=== PATIENT | female | born 1990 | race American Indian/Alaskan Native ===

== ENCOUNTER 2018-02-26 07:40 | Emergency (ER) | payer MEDICAID ==
[2018-02-26 07:51] VITALS: BP 158/83
[2018-02-26] MEDS ORDERED: DELTASONE PO ONE (10:02)
[2018-02-26] MEDS ORDERED: TORADOL IM ONE (10:03)
--- NOTE | 2018-02-26 10:09 | Emergency Department Report ---
ED General Adult HPI - General Chief complaint: Back Pain/Injury Stated complaint: BACK PAIN Time Seen by Provider: 02/26/18 09:58 Source: patient Mode of arrival: Ambulatory Limitations: No Limitations - History of Present Illness Initial comments: Patient complains of lower back pain that has been present for the last 5 days that radiates into her left leg and down into her toes. Patient does have a history of back injuries. Denies any issues with bowel or bladder. Also denies any weakness or numbness. No recent injury -: Gradual Location: back Radiation: other (leg) Severity scale (0 -10): 6 Quality: sharp Consistency: constant Improves with: rest Worsens with: movement Associated Symptoms: denies other symptoms Treatments Prior to Arrival: NSAID - Related Data Previous Rx's Medication Instructions Recorded Last Taken Type Hydrocortisone 2.5% [Hytone 2.5% 1 applicatio TP QDAY #1 tube 11/17/14 Unknown Rx CREAM] Cyclobenzaprine [Flexeril 10mg] 10 mg PO Q8H PRN #21 tablet 12/13/14 Unknown Rx HYDROcodone/APAP 5-325 [[place] 1 each PO Q6HR PRN #16 tablet 12/13/14 Unknown Rx 5-325 mg TAB] Meloxicam 15 mg PO QDAY #30 tablet 01/08/15 Unknown Rx traMADol [Ultram] 50 mg PO Q6HR PRN #20 tablet 01/08/15 Unknown Rx Acetaminophen/Codeine [Tylenol #3] 1 tab PO Q6H PRN #15 tab 01/12/15 Unknown Rx Acetaminophen/Codeine [Tylenol 1 tab PO Q6H PRN #20 tab 02/26/18 Unknown Rx /Codeine # 3 tab] Ibuprofen [Motrin] 800 mg PO Q8HR PRN #30 tablet 02/26/18 Unknown Rx Prednisone [predniSONE 10 mg 10 mg PO .TAPER #1 tab.ds.pk 02/26/18 Unknown Rx (6-Day Pack, 21 Tabs)] Allergies Allergy/AdvReac Type Severity Reaction Status Date / Time tramadol Allergy Rash Verified 02/26/18 07:48 latex AdvReac "YEAST" Verified 01/12/15 17:24 ED Review of Systems ROS: Stated complaint: BACK PAIN Other details as noted in HPI Constitutional: denies: chills, fever Eyes: denies: eye pain, eye discharge, vision change ENT: denies: ear pain, throat pain Respiratory: denies: cough, shortness of breath, wheezing Cardiovascular: denies: chest pain, palpitations Endocrine: no symptoms reported Gastrointestinal: denies: abdominal pain, nausea, diarrhea Genitourinary: denies: urgency, dysuria, discharge Musculoskeletal: back pain. denies: joint swelling, arthralgia Skin: denies: rash, lesions Neurological: denies: headache, weakness, paresthesias Psychiatric: denies: anxiety, depression Hematological/Lymphatic: denies: easy bleeding, easy bruising ED Past Medical Hx - Past Medical History Previous Medical History?: Yes Additional medical history: BACK PAIN - Surgical History Past Surgical History?: Yes Additional Surgical History: x 1 - Social History Smoking Status: Never Smoker Substance Use Type: Prescribed - Medications Home Medications: Home Medications Medication Instructions Recorded Confirmed Last Taken Type Hydrocortisone 2.5% [Hytone 2.5% 1 applicatio TP QDAY #1 tube 11/17/14 Unknown Rx CREAM] Cyclobenzaprine [Flexeril 10mg] 10 mg PO Q8H PRN #21 tablet 12/13/14 Unknown Rx HYDROcodone/APAP 5-325 [[place] 1 each PO Q6HR PRN #16 tablet 12/13/14 Unknown Rx 5-325 mg TAB] Meloxicam 15 mg PO QDAY #30 tablet 01/08/15 Unknown Rx traMADol [Ultram] 50 mg PO Q6HR PRN #20 tablet 01/08/15 Unknown Rx Acetaminophen/Codeine [Tylenol #3] 1 tab PO Q6H PRN #15 tab 01/12/15 Unknown Rx Acetaminophen/Codeine [Tylenol 1 tab PO Q6H PRN #20 tab 02/26/18 Unknown Rx /Codeine # 3 tab] Ibuprofen [Motrin] 800 mg PO Q8HR PRN #30 tablet 02/26/18 Unknown Rx Prednisone [predniSONE 10 mg 10 mg PO .TAPER #1 tab.ds.pk 02/26/18 Unknown Rx (6-Day Pack, 21 Tabs)] ED Physical Exam - General Limitations: No Limitations General appearance: alert, in no apparent distress - Head Head exam: Present: atraumatic, normocephalic - Eye Eye exam: Present: normal appearance - ENT ENT exam: Present: mucous membranes moist - Neck Neck exam: Present: normal inspection - Respiratory Respiratory exam: Present: normal lung sounds bilaterally. Absent: respiratory distress - Cardiovascular Cardiovascular Exam: Present: regular rate, normal rhythm. Absent: systolic murmur, diastolic murmur, rubs, gallop - GI/Abdominal GI/Abdominal exam: Present: soft, normal bowel sounds - Extremities Exam Extremities exam: Present: normal inspection - Back Exam Back exam: Present: other (patient has tenderness to palpation at the sciatic nerve outlet on the left side. Range of motion is limited secondary to pain. There is tenderness palpation of the paralumbar region) - Neurological Exam Neurological exam: Present: alert, oriented X3 - Psychiatric Psychiatric exam: Present: normal affect, normal mood - Skin Skin exam: Present: warm, dry, intact, normal color. Absent: rash ED Course Vital Signs 02/26/18 07:48 Temperature 98.3 F Pulse Rate 84 Respiratory 18 Rate Blood Pressure 158/83 O2 Sat by Pulse 98 Oximetry ED Medical Decision Making - Medical Decision Making Discussed diagnosis and plan of care with patient Critical care attestation.: If time is entered above; I have spent that time in minutes in the direct care of this critically ill patient, excluding procedure time. ED Disposition Clinical Impression: Sciatica Disposition: DC-01 TO HOME OR SELFCARE Is pt being admited?: No Does the pt Need Aspirin: No Condition: Stable Instructions: Sciatica (ED) Additional Instructions: Return if worse Prescriptions: Acetaminophen/Codeine [Tylenol /Codeine # 3 tab] 1 tab PO Q6H PRN #20 tab PRN Reason: Pain Ibuprofen [Motrin] 800 mg PO Q8HR PRN #30 tablet PRN Reason: Pain Prednisone [predniSONE 10 mg (6-Day Pack, 21 Tabs)] 10 mg PO .TAPER #1 tab.ds.pk Referrals: PRIMARY CAREMD [Primary Care Provider] - 3-5 Days EWA PRIETO MD [Staff Physician] - 3-5 Days Time of Disposition: 10:07
== END 2018-02-26 10:17 | disposition home or self-care (01) ==
LOC: ED 07:40
DX: M54.32 Sciatica, left side (principal); Z91.040 Latex allergy status
CPT/HCPCS: 96372; 99282; J1885; J7512

== ENCOUNTER 2019-12-16 17:59 | Emergency (ER) | payer SELFPAY ==
[2019-12-16 21:18] VITALS: BP 139/94
[2019-12-16] MEDS ORDERED: FAMOTIDINE 20 MG TAB PO ONE (23:45)
[2019-12-16] MEDS ORDERED: dexAMETHasone 20 MG/5 ML VIAL IM ONE (23:45)
[2019-12-17] MEDS: diphenhydrAMINE 25 MG CAP PO ONE (00:01)
--- NOTE | 2019-12-17 00:32 | Emergency Department Report ---
ED Rash HPI - HPI Chief Complaint: Skin Rash Stated Complaint: RASH Time Seen by Provider: 12/16/19 23:44 Duration: 2 Days Location: Neck, Chest, Back, Abdomen Rash Symptoms: Yes Itching, No Facial Swelling, No Tongue/Oral Swelling, No Breathing Difficulties, No Choking Sensation, No Wheezing/Dyspnea, No Peeling, No Blistering, No Fever, No Lightheaded, No Malaise, No Myalgias Severity: moderate Other History: Patient is a 29-year-old -[place] female who presents for generalized rash to chest neck back and trunk. Patient states sudden eruption 2 days ago , unknown trigger. There is no shortness of breath no wheezing no stridor. Lesions are papular erythemic no drainage no fever symptoms relieved by its scratch cycle, symptoms exacerbated by it scratch cycle. pt with nad ED Review of Systems ROS: Stated complaint: RASH Other details as noted in HPI Constitutional: denies: chills, fever Eyes: denies: eye pain, eye discharge, vision change ENT: denies: ear pain, throat pain Respiratory: denies: cough, shortness of breath, wheezing Cardiovascular: denies: chest pain, palpitations Endocrine: no symptoms reported Gastrointestinal: denies: abdominal pain, nausea, diarrhea Genitourinary: denies: urgency, dysuria, discharge Musculoskeletal: denies: back pain, joint swelling, arthralgia Skin: rash, pruritus. denies: lesions, change in color, change in hair/nails Neurological: denies: headache, weakness, paresthesias Psychiatric: denies: anxiety, depression Hematological/Lymphatic: as per HPI ED Past Medical Hx - Past Medical History Previous Medical History?: No Additional medical history: BACK PAIN - Surgical History Past Surgical History?: Yes Additional Surgical History: x 1 - Social History Smoking Status: Never Smoker Substance Use Type: Prescribed - Medications Home Medications: Home Medications Medication Instructions Recorded Confirmed Last Taken Type Hydrocortisone 2.5% [Hytone 2.5% 1 applicatio TP QDAY #1 tube 11/17/14 Unknown Rx CREAM] Cyclobenzaprine [Flexeril 10mg] 10 mg PO Q8H PRN #21 tablet 12/13/14 Unknown Rx HYDROcodone/APAP 5-325 [[place] 1 each PO Q6HR PRN #16 tablet 12/13/14 Unknown Rx 5-325 mg TAB] Meloxicam 15 mg PO QDAY #30 tablet 01/08/15 Unknown Rx traMADoL [Ultram] 50 mg PO Q6HR PRN #20 tablet 01/08/15 Unknown Rx Acetaminophen/Codeine [Tylenol #3] 1 tab PO Q6H PRN #15 tab 01/12/15 Unknown Rx Acetaminophen/Codeine [Tylenol 1 tab PO Q6H PRN #20 tab 02/26/18 Unknown Rx /Codeine # 3 tab] Ibuprofen [Motrin] 800 mg PO Q8HR PRN #30 tablet 02/26/18 Unknown Rx Prednisone [predniSONE 10 mg 10 mg PO .TAPER #1 tab.ds.pk 02/26/18 Unknown Rx (6-Day Pack, 21 Tabs)] Famotidine [Pepcid] 20 mg PO BID 7 Days #14 tablet 12/17/19 Unknown Rx Prednisone [predniSONE 10 mg 10 mg PO .TAPER #1 tab.ds.pk 12/17/19 Unknown Rx (6-Day Pack, 21 Tabs)] Triamcinolone 0.1% [Kenalog 0.1% 1 applic TP TID 14 Days #1 tube 12/17/19 Unknown Rx CREAM] diphenhydrAMINE [Benadryl CAP] 25 mg PO Q6HR PRN #30 capsule 12/17/19 Unknown Rx Rash Exam - Exam General: Vital signs noted. No distress. Alert and acting appropriately. HEENT: No Periorbital Edema, No Conjuctival Injection, No Chemosis, No Perioral Edema, No Tongue Edema, No Uvular Edema, No Compromised Airway, No Drooling Lungs: Yes Good Air Exchange (Normal Breath Sounds), No Wheezes, No Ronchi, No Stridor, No Cough, No Labored Respirations, No Retractions, No Use of Accessory Muscles, No Other Abnormal Lung Sounds Heart: Yes Regular, No Murmur Skin: Yes Urticarial Rash, Yes Maculopapular Rash, Yes Erythema, No Morbilliform rash, No Bulla(e), No Excoriations, No Weeping, No Tenderness, No Edema, No Encrustations Other: Positive: Abdomen Normal, Neurologic Normal, Musculoskeletal Normal ED Course Vital Signs 12/16/19 18:10 Temperature 98.9 F Pulse Rate 97 H Respiratory 18 Rate Blood Pressure 139/94 O2 Sat by Pulse 98 Oximetry ED Medical Decision Making - Medical Decision Making this is a contact dermatitis. symptoms improved with medications given in ed. Plan dc to home with rx for pepcid, benadryl , prednisone, and triamincolone oint, pt will follow up with pcp in 2-3 days. pt will return to ed if symptoms worsens. pt is currently a/ox 3 , resp even and nonlobored, pt nad at this time. Critical care attestation.: If time is entered above; I have spent that time in minutes in the direct care of this critically ill patient, excluding procedure time. ED Disposition Clinical Impression: Allergic dermatitis Disposition: DC-01 TO HOME OR SELFCARE Is pt being admited?: No Does the pt Need Aspirin: No Condition: Stable Instructions: Contact Dermatitis (ED) Prescriptions: diphenhydrAMINE [Benadryl CAP] 25 mg PO Q6HR PRN #30 capsule PRN Reason: itching allergies Triamcinolone 0.1% [Kenalog 0.1% CREAM] 1 applic TP TID 14 Days #1 tube Famotidine [Pepcid] 20 mg PO BID 7 Days #14 tablet Prednisone [predniSONE 10 mg (6-Day Pack, 21 Tabs)] 10 mg PO .TAPER #1 tab.ds.pk Referrals: EWA PRIETO MD [Staff Physician] - 3-5 Days Forms: Work/School Release Form(ED) Time of Disposition: 00:43
== END 2019-12-17 00:50 | disposition home or self-care (01) ==
LOC: ED 17:59
DX: L23.9 Allergic contact dermatitis, unspecified cause (principal); Z98.890 Other specified postprocedural states; Z91.040 Latex allergy status; Z88.6 Allergy status to analgesic agent; Z79.899 Other long term (current) drug therapy
CPT/HCPCS: 96372; 99282; J1100

== ENCOUNTER 2021-01-01 10:29 | Emergency (ER) | payer SELFPAY ==
[2021-01-01 11:16] LABS: Basophils % (Auto) 0.4 % (0.0-1.8); Eosinophils # (Auto) 0.1 K/mm3 (0.0-0.4); Eosinophils % (Auto) 0.8 % (0.0-4.3); Hematocrit 37.2 % (30.3-42.9); Hemoglobin 12.8 gm/dl (10.1-14.3); Lymphocytes # (Auto) 1.9 K/mm3 (1.2-5.4); Mean Corpuscular HGB Conc 35 % (30-34); Mean Corpuscular Volume 86 fl (79-97); Monocytes # (Auto) 0.5 K/mm3 (0.0-0.8); Platelet Count 308 K/mm3 (140-440); Red Blood Count 4.31 M/mm3 (3.65-5.03); Red Cell Distribution Width 13.4 % (13.2-15.2)
[2021-01-01 11:22] LABS: Bilirubin,Urine NEG (Negative); Blood,Urine LG (Negative); Color,Urine Yellow (Yellow); Mucus,Urine FEW /HPF; Urobilinogen,Urine < 2.0 mg/dL (<2.0)
--- NOTE | 2021-01-01 11:31 | Emergency Department Report ---
ED General Adult HPI - General Chief complaint: Vaginal Bleeding Stated complaint: 3 WKS BLEEDING Time Seen by Provider: 01/01/21 10:47 Source: patient Mode of arrival: Ambulatory Limitations: No Limitations - History of Present Illness Initial comments: Patient is a 30-year-old female presents emergency room complaints of vaginal spotting that began last night. She states that she has some mild lower abdominal cramping. She states that her last menstrual cycle was November 15, 2020. She states that she took 4 at home test [id number] and they were positive. She has not yet seen anyone for this . She denies any fever, nausea, vomiting, diarrhea, chills, back pain, urinary symptoms, heavy bleeding, passing clots. No past medical history. Allergy to tramadol and latex. /P: 2/A: 1 - Related Data Previous Rx's Medication Instructions Recorded Last Taken Type Hydrocortisone 2.5% [Hytone 2.5% 1 applicatio TP QDAY #1 tube 11/17/14 Unknown Rx CREAM] Cyclobenzaprine [Flexeril 10mg] 10 mg PO Q8H PRN #21 tablet 12/13/14 Unknown Rx HYDROcodone/APAP 5-325 [[place] 1 each PO Q6HR PRN #16 tablet 12/13/14 Unknown Rx 5-325 mg TAB] Meloxicam 15 mg PO QDAY #30 tablet 01/08/15 Unknown Rx traMADoL [Ultram] 50 mg PO Q6HR PRN #20 tablet 01/08/15 Unknown Rx Acetaminophen/Codeine [Tylenol #3] 1 tab PO Q6H PRN #15 tab 01/12/15 Unknown Rx Acetaminophen/Codeine [Tylenol 1 tab PO Q6H PRN #20 tab 02/26/18 Unknown Rx /Codeine # 3 tab] Ibuprofen [Motrin] 800 mg PO Q8HR PRN #30 tablet 02/26/18 Unknown Rx Prednisone [predniSONE 10 mg 10 mg PO .TAPER #1 tab.ds.pk 02/26/18 Unknown Rx (6-Day Pack, 21 Tabs)] Famotidine [Pepcid] 20 mg PO BID 7 Days #14 tablet 12/17/19 Unknown Rx Prednisone [predniSONE 10 mg 10 mg PO .TAPER #1 tab.ds.pk 12/17/19 Unknown Rx (6-Day Pack, 21 Tabs)] Triamcinolone 0.1% [Kenalog 0.1% 1 applic TP TID 14 Days #1 tube 12/17/19 Unknown Rx CREAM] diphenhydrAMINE [Benadryl CAP] 25 mg PO Q6HR PRN #30 capsule 12/17/19 Unknown Rx Allergies Allergy/AdvReac Type Severity Reaction Status Date / Time tramadol Allergy Rash Verified 01/01/21 10:32 latex AdvReac "YEAST" Verified 01/01/21 10:32 ED Review of Systems ROS: Stated complaint: 3 WKS BLEEDING Other details as noted in HPI Comment: All other systems reviewed and negative ED Past Medical Hx - Past Medical History Previous Medical History?: Yes Additional medical history: BACK PAIN - Surgical History Additional Surgical History: x 1 - Social History Smoking Status: Never Smoker Substance Use Type: None - Medications Home Medications: Home Medications Medication Instructions Recorded Confirmed Last Taken Type Hydrocortisone 2.5% [Hytone 2.5% 1 applicatio TP QDAY #1 tube 11/17/14 Unknown Rx CREAM] Cyclobenzaprine [Flexeril 10mg] 10 mg PO Q8H PRN #21 tablet 12/13/14 Unknown Rx HYDROcodone/APAP 5-325 [[place] 1 each PO Q6HR PRN #16 tablet 12/13/14 Unknown Rx 5-325 mg TAB] Meloxicam 15 mg PO QDAY #30 tablet 01/08/15 Unknown Rx traMADoL [Ultram] 50 mg PO Q6HR PRN #20 tablet 01/08/15 Unknown Rx Acetaminophen/Codeine [Tylenol #3] 1 tab PO Q6H PRN #15 tab 01/12/15 Unknown Rx Acetaminophen/Codeine [Tylenol 1 tab PO Q6H PRN #20 tab 02/26/18 Unknown Rx /Codeine # 3 tab] Ibuprofen [Motrin] 800 mg PO Q8HR PRN #30 tablet 02/26/18 Unknown Rx Prednisone [predniSONE 10 mg 10 mg PO .TAPER #1 tab.ds.pk 02/26/18 Unknown Rx (6-Day Pack, 21 Tabs)] Famotidine [Pepcid] 20 mg PO BID 7 Days #14 tablet 12/17/19 Unknown Rx Prednisone [predniSONE 10 mg 10 mg PO .TAPER #1 tab.ds.pk 12/17/19 Unknown Rx (6-Day Pack, 21 Tabs)] Triamcinolone 0.1% [Kenalog 0.1% 1 applic TP TID 14 Days #1 tube 12/17/19 Unknown Rx CREAM] diphenhydrAMINE [Benadryl CAP] 25 mg PO Q6HR PRN #30 capsule 12/17/19 Unknown Rx ED Physical Exam - General Limitations: No Limitations General appearance: alert, in no apparent distress - Head Head exam: Present: atraumatic, normocephalic - Eye Eye exam: Present: normal appearance - ENT ENT exam: Present: mucous membranes moist - Respiratory Respiratory exam: Present: normal lung sounds bilaterally. Absent: respiratory distress, wheezes, rales, rhonchi, stridor, chest wall tenderness, accessory muscle use, decreased breath sounds, prolonged expiratory - Cardiovascular Cardiovascular Exam: Present: regular rate, normal rhythm, normal heart sounds. Absent: systolic murmur, diastolic murmur, rubs, gallop - GI/Abdominal GI/Abdominal exam: Present: soft, normal bowel sounds. Absent: distended, tenderness, guarding, rebound, rigid - Neurological Exam Neurological exam: Present: alert, oriented X3 - Psychiatric Psychiatric exam: Present: normal affect, normal mood - Skin Skin exam: Present: warm, dry, intact ED Course Vital Signs 01/01/21 01/01/21 10:33 14:39 Temperature 98.7 F Pulse Rate 91 H 93 H Respiratory 20 18 Rate Blood Pressure 142/88 Blood Pressure 124/91 [Left] O2 Sat by Pulse 100 100 Oximetry ED Medical Decision Making - Lab Data Result diagrams: 01/01/21 10:58 01/01/21 10:58 Lab Results 01/01/21 01/01/21 01/01/21 Range/Units 10:46 10:56 10:58 WBC 7.1 (4.5-11.0) K/mm3 RBC 4.31 (3.65-5.03) M/mm3 Hgb 12.8 (10.1-14.3) gm/dl Hct 37.2 (30.3-42.9) % MCV 86 (79-97) fl MCH 30 (28-32) pg MCHC 35 H (30-34) % RDW 13.4 (13.2-15.2) % Plt Count 308 (140-440) K/mm3 Lymph % (Auto) 26.0 (13.4-35.0) % [place] % (Auto) 7.0 (0.0-7.3) % Eos % (Auto) 0.8 (0.0-4.3) % Baso % (Auto) 0.4 (0.0-1.8) % Lymph # (Auto) 1.9 (1.2-5.4) K/mm3 [place] # (Auto) 0.5 (0.0-0.8) K/mm3 Eos # (Auto) 0.1 (0.0-0.4) K/mm3 Baso # (Auto) 0.0 (0.0-0.1) K/mm3 Seg Neutrophils % 65.8 (40.0-70.0) % Seg Neutrophils # 4.7 (1.8-7.7) K/mm3 Sodium (137-145) mmol/L Potassium (3.6-5.0) mmol/L Chloride (98-107) mmol/L Carbon Dioxide (22-30) mmol/L Anion Gap mmol/L BUN (7-17) mg/dL Creatinine (0.6-1.2) mg/dL Estimated GFR ml/min BUN/Creatinine Ratio % Glucose (65-100) mg/dL Calcium (8.4-10.2) mg/dL Total Bilirubin (0.1-1.2) mg/dL AST (5-40) units/L ALT (7-56) units/L Alkaline Phosphatase (35-129) units/L Total Protein (6.3-8.2) g/dL Albumin (3.9-5) g/dL Albumin/Globulin Ratio % HCG, Quant (0-4) mIU/mL Urine Color Yellow (Yellow) Urine Turbidity Slightly-cloudy (Clear) Urine pH 6.0 (5.0-7.0) Ur Specific [place] 1.015 (1.003-1.030) Urine Protein 30 mg/dl (Negative) mg/dL Urine Glucose (UA) 50 (Negative) mg/dL Urine Ketones Neg (Negative) mg/dL Urine Blood Lg (Negative) Urine Nitrite Neg (Negative) Urine Bilirubin Neg (Negative) Urine Urobilinogen < 2.0 (<2.0) mg/dL Ur Leukocyte Esterase Sm (Negative) Urine WBC (Auto) 31.0 H (0.0-6.0) /HPF Urine RBC (Auto) 78.0 (0.0-6.0) /HPF U Epithel Cells (Auto) 2.0 (0-13.0) /HPF Urine Mucus Few /HPF Blood Type B NEGATIVE 01/01/21 01/01/21 Range/Units 10:58 10:58 WBC (4.5-11.0) K/mm3 RBC (3.65-5.03) M/mm3 Hgb (10.1-14.3) gm/dl Hct (30.3-42.9) % MCV (79-97) fl MCH (28-32) pg MCHC (30-34) % RDW (13.2-15.2) % Plt Count (140-440) K/mm3 Lymph % (Auto) (13.4-35.0) % [place] % (Auto) (0.0-7.3) % Eos % (Auto) (0.0-4.3) % Baso % (Auto) (0.0-1.8) % Lymph # (Auto) (1.2-5.4) K/mm3 [place] # (Auto) (0.0-0.8) K/mm3 Eos # (Auto) (0.0-0.4) K/mm3 Baso # (Auto) (0.0-0.1) K/mm3 Seg Neutrophils % (40.0-70.0) % Seg Neutrophils # (1.8-7.7) K/mm3 Sodium 139 (137-145) mmol/L Potassium 3.2 L (3.6-5.0) mmol/L Chloride 103.1 (98-107) mmol/L Carbon Dioxide 26 (22-30) mmol/L Anion Gap 13 mmol/L BUN 10 (7-17) mg/dL Creatinine 0.7 (0.6-1.2) mg/dL Estimated GFR > 60 ml/min BUN/Creatinine Ratio 14 % Glucose 81 (65-100) mg/dL Calcium 8.9 (8.4-10.2) mg/dL Total Bilirubin 0.40 (0.1-1.2) mg/dL AST 14 (5-40) units/L ALT 10 (7-56) units/L Alkaline Phosphatase 84 (35-129) units/L Total Protein 7.2 (6.3-8.2) g/dL Albumin 4.2 (3.9-5) g/dL Albumin/Globulin Ratio 1.4 % HCG, Quant 1421 H (0-4) mIU/mL Urine Color (Yellow) Urine Turbidity (Clear) Urine pH (5.0-7.0) Ur Specific [place] (1.003-1.030) Urine Protein (Negative) mg/dL Urine Glucose (UA) (Negative) mg/dL Urine Ketones (Negative) mg/dL Urine Blood (Negative) Urine Nitrite (Negative) Urine Bilirubin (Negative) Urine Urobilinogen (<2.0) mg/dL Ur Leukocyte Esterase (Negative) Urine WBC (Auto) (0.0-6.0) /HPF Urine RBC (Auto) (0.0-6.0) /HPF U Epithel Cells (Auto) (0-13.0) /HPF Urine Mucus /HPF Blood Type - Radiology Data Radiology results: report reviewed Ordering Physician: SANJUANITA FRASER Date of Service: 01/01/21 Procedure(s): US OB <= 14 weeks fetus Accession Number(s): [id number] cc: SANJUANITA FRASER ULTRASOUND OBSTETRIC INDICATION / CLINICAL INFORMATION: , cramping, spotting. TECHNIQUE: Transabdominal-transvaginal. COMPARISON: None available. FINDINGS: Heterogeneous densities present in the endometrial canal measuring 0.85 cm in length. Numerous small nabothian cyst are present cervical region ADNEXA: No significant abnormality. FREE FLUID: None. ADDITIONAL FINDINGS: None. IMPRESSION: 1. Questionable very small gestational sac recommend clinical correlation Signer Name: Cecil Schmid MD Signed: 01/01/2021 1:40 PM Workstation Name: [id number] Transcribed By: WG Dictated By: Cecil Schmid MD Electronically Authenticated By: Cecil Schmid MD Signed Date/Time: 01/01/21 1340 DD/ 1338 TD/TT: Print Cancel - Medical Decision Making Patient is a 30-year-old female presents emergency room complaints of vaginal spotting that began last night. She states that she has some mild lower abdominal cramping. She states that her last menstrual cycle was November 15, 2020. She states that she took 4 at home test [id number] and t hey were positive. She has not yet seen anyone for this . She denies any fever, nausea, vomiting, diarrhea, chills, back pain, urinary symptoms, heavy bleeding, passing clots. No past medical history. Allergy to tramadol and latex. /P: 2/A: 1. Vitals are stable. On exam no abdominal tenderness on exam, no guarding, no rebound, no rigidity, normal sounds, no peritoneal signs. Labs with mild hypokalemia, repleted with potassium. hCG quant is 1421. UA shows evidence of blood, there is a small amount of white blood cells and small leukocyte esterase, patient is not having any urinary symptoms, will await urine culture results, I do not believe this is a UTI, likely secondary to contamination. OB ultrasound: 1. Questionable very small gestational sac recommend clinical correlation . Discussed all results with patient and answered questions. Discussed threatened miscarriage with patient given early and bleeding. Discuss strict return precautions with patient. Discussed the importance of [facility] follow-up. Advised patient that she will need to have a repeat of her hCG quant in 2 days. Advised patient May take Tylenol as needed for any cramping. Increase your water intake. Please practice pelvic rest. Please take a vitamin [id number]. Please follow-up with [facility]. You need to have a repeat of your hCG quant in 2 days. Today 01/01/2021 your hCG quant is 1421. Return to emergency room for new or symptoms. Upon further review of labs, it is found that patient is B negative making her Rh-. I called patient and discussed this finding with her, I advised her to return to the emergency room. She states that she cannot return today but she will report tomorrow morning for a RhoGam shot due to and bleeding. I urged patient to return today, but she states she is unable. I discussed the risks associated with not having the RhoGam shot and the risks to the fetus, she verbalized understanding and states that she will be here tomorrow (01/02/2021). - Differential Diagnosis IUP, ectopic, miscarriage, hemorrhagic cyst, subchorionic hemorrhage Critical care attestation.: If time is entered above; I have spent that time in minutes in the direct care of this critically ill patient, excluding procedure time. ED Disposition Clinical Impression: Threatened miscarriage Disposition: DC-01 TO HOME OR SELFCARE Is pt being admited?: No Does the pt Need Aspirin: No Condition: Stable Instructions: Threatened Miscarriage Additional Instructions: May take Tylenol as needed for any cramping. Increase your water intake. Please practice pelvic rest. Please take a vitamin [id number]. Please follow-up with [facility]. You need to have a repeat of your hCG quant in 2 days. Today 01/01/2021 your hCG quant is 1421. Return to emergency room for new or symptoms. Referrals: PRIMARY CARE, [Primary Care Provider] - 2-3 Days [facility] [Provider Group] - 2-3 Days [facility] [Provider Group] - 2-3 Days [facility] [Provider Group] - 2-3 Days Forms: Work/School Release Form(ED) Time of Disposition: 13:54 Print Language: NEPALI
[2021-01-01 11:40] LABS: Alanine Aminotransferase 10 units/L (7-56); Albumin 4.2 g/dL (3.9-5); Blood Urea Nitrogen 10 mg/dL (7-17); Calcium 8.9 mg/dL (8.4-10.2); Hemolysis Index 8
[2021-01-01 11:41] LABS: BUN/Creatinine Ratio 14
[2021-01-01] MEDS ORDERED: POTASSIUM CHLORIDE ER 20 MEQ TAB PO ONE (11:56)
[2021-01-01] MEDS ORDERED: POTASSIUM CHLORIDE 20 MEQ PACKET FEEDTUBE NR (12:04)
--- NOTE | 2021-01-01 13:45 | Ultrasound Report ---
ULTRASOUND OBSTETRIC INDICATION / CLINICAL INFORMATION: , cramping, spotting. TECHNIQUE: Transabdominal-transvaginal. COMPARISON: None available. FINDINGS: Heterogeneous densities present in the endometrial canal measuring 0.85 cm in length. Numerous small nabothian cyst are present cervical region ADNEXA: No significant abnormality. FREE FLUID: None. ADDITIONAL FINDINGS: None. IMPRESSION: 1. Questionable very small gestational sac recommend clinical correlation Signer Name: Cecil Schmid MD Signed: 01/01/2021 1:40 PM Workstation Name: [id number]
[2021-01-01 14:40] VITALS: BP 124/91
== END 2021-01-01 14:41 | disposition home or self-care (01) ==
LOC: ED 10:29
DX: O20.0 Threatened abortion (principal); Z3A.01 Less than 8 weeks gestation of pregnancy; Z98.890 Other specified postprocedural states; Z88.8 Allergy status to other drugs, medicaments and biological substances; Z91.040 Latex allergy status
CPT/HCPCS: 36415; 76801; 76817; 80053; 81001; 84702; 85025; 86900; 86901; 87086